=== PATIENT | female | born 1930 | race African-American/Black ===

== ENCOUNTER 2017-05-21 16:22 | Inpatient (IN) ==
[2017-05-21] MEDS ORDERED: NS 1,000 ML IV ONE ×2 (17:50→21:34)
[2017-05-21 18:00] LABS: MANUAL DIFF NEEDED? NO
[2017-05-21 18:03] LABS: BASO% 0.4 % (0.0-0.8); EOS% 2.1 % (0.0-10.0); HEMATOCRIT 37.6 % (37.0-47.0); HEMOGLOBIN 11.8 g/dL (12.0-16.0); LYMPH# 3.01 X1000 (1.2-3.4); LYMPH% 30.9 % (20.5-51.1); MCH 27.3 PG (27-31); MCHC 31.4 g/dL (33-37); MONO# 1.23 X1000 (0.11-0.59); MONO% 12.6 % (1.7-9.3); MPV 11.9 FL (7.4-10.4); PLT 222 X1000 (130-400); RBC 4.32 XMIL (4.2-5.4)
[2017-05-21 18:22] LABS: ALBUMIN 3.6 g/dL (3.5-5.0); CALCIUM 10.1 mg/dL (8.8-10.2); POTASSIUM 3.7 mmol/L (3.5-5.1); TOTAL BILIRUBIN 0.2 mg/dL (0.20-1.00)
--- NOTE | 2017-05-21 18:46 | Diag Imaging Result Doc PS360 ---
EXAM: CHEST-1 VIEW INDICATION: r/o pneumonia TECHNIQUE: One view COMPARISON: 05/18/2017 FINDINGS: There is mild chronic appearing interstitial thickening bilaterally, stable. There is suggestion of mild atelectasis and/or infiltrate at the left lung base. The lungs are grossly clear, otherwise. There is no discrete pleural fluid collection or pneumothorax. There are stable CABG changes. Cardiac silhouette and central vasculature are essentially unremarkable, otherwise. IMPRESSION: Chronic appearing interstitial fibrotic change and minimal atelectasis versus infiltrate at the left lung base. Electronically signed by Lisandro Lisa 05/21/2017 6:44 PM
--- NOTE | 2017-05-21 19:08 | EKG Report ---
Test Performed on : 05/21/2017 6:51:50 PM Test Reason : chest pain Blood Pressure : / mmHG Vent. Rate : 057 BPM Atrial Rate : 057 BPM P-R Int : 200 ms QRS Dur : 104 ms QT Int : 436 ms P-R-T Axes : 026 000 030 degrees QTc Int : 424 ms Sinus bradycardia. Septal infarct (cited on or before 14-MAY-2017) Abnormal ECG When compared with ECG of 14-MAY-2017 15:53, Questionable change in initial forces of Septal leads Unconfirmed Result
[2017-05-21 20:23] LABS: URINE SOURCE CLEAN CATCH
[2017-05-21 20:26] LABS: BILIRUBIN URINE 1+ (NEGATIVE); BLOOD URINE NEGATIVE (NEGATIVE); CLARITY CLEAR (CLEAR); COLOR YELLOW; GLUCOSE URINE NEGATIVE (NEGATIVE); LEUKOCYTES URINE NEGATIVE (NEGATIVE); NITRITE URINE NEGATIVE (NEGATIVE); PROTEIN URINE TRACE mg/dL (NEGATIVE); URINE MICROSCOPIC NEEDED? YES; UROBILINOGEN URINE NORMAL
[2017-05-21 20:33] LABS: URINE EPITHELIAL CELLS <10 /HPF (<10); URINE RBC <10 /HPF (<10); URINE WBC <10 /HPF (<10)
[2017-05-21] MEDS ORDERED: PLAVIX PO ONE (22:56)
[2017-05-21] MEDS ORDERED: PRAVACHOL PO ONE (22:56)
--- NOTE | 2017-05-21 23:20 | PROVIDER DOCUMENTATION ---
This chart was entered by Iris Stokes Scribe, acting as scribe for Vlad Escalante DO. HPI-General Adult - General Chief Complaint: Headache Stated Complaint: "DEHYDRATED" Time Seen by Provider: 05/21/17 17:07 Source: patient, family Allergies/Adverse Reactions: Patient Allergies Allergy/AdvReac Type Severity Reaction Status Date / Time No Known Allergies Allergy Verified 05/14/17 14:42 Home Medications: Home Medication List Medication Instructions Recorded Confirmed Last Taken Type Alendronate Sodium 70 mg PO DIRECTED 06/27/15 05/14/17 03/21/16 History Allopurinol 300 mg PO DAILY 06/27/15 05/14/17 03/24/16 History Amlodipine Besylate 10 mg PO DAILY 06/27/15 05/14/17 03/24/16 History Clopidogrel [Plavix] 75 mg PO DAILY 06/27/15 05/14/17 03/24/16 History Levothyroxine [Synthroid] 88 microgm PO DAILY 06/27/15 05/14/17 03/24/16 History Losartan/Hydrochlorothiazide 1 each PO DAILY 06/27/15 05/14/17 03/24/16 History [Losartan-Hctz 50-12.5 mg Tab] Metoprolol Succinate E.r. [Toprol 50 mg PO DAILY 06/27/15 05/14/17 03/24/16 History Xl] Pantoprazole Sodium 40 mg PO DAILY 06/27/15 05/14/17 03/24/16 History Potassium Chloride 10 meq PO DAILY 06/27/15 05/14/17 03/24/16 History Pregabalin [Lyrica] 150 mg PO TID 06/27/15 05/14/17 03/24/16 History Trazodone [Desyrel] 100 mg PO QHS 06/27/15 05/14/17 03/24/16 History Calcium Carbonate/Vitamin D3 1 tab PO DAILY 03/25/16 05/14/17 03/24/16 History [Calcium 600 + Vit D 400 Tablet] Hydrocodone/Acetaminophen [Dunn 1 tab PO TID PRN PRN #0 03/28/16 05/14/1712/04 Rx 10-325 Tablet] PRAVAstatin [Pravachol] 20 mg PO QHS 05/14/17 05/14/17 Unknown History Ondansetron [Zofran] 4 mg IV Q6H PRN PRN #20 vial 05/18/17 Unknown Rx - History of Present Illness -Gen Adult Nature of Presenting Problems: pt presents complaining of "heavy head" feeling discharged 4 days ago from this facility, pt unable to describe complaint further, family feels pt is dehydrated. Location of Pain/Injury: reports: none. denies: head (no injury or pain pt describes "heavy head" feeling) Pain Radiation: reports: no radiation. denies: chest, jaw, neck Quality of Pain: reports: fullness Severity: reports: mild Onset/Duration: reports: unsure Timing: reports: still present Context/Activities at Onset: reports: rest Modifying Factors: improves with: nothing Associated Symptoms: denies: chest pain, dizziness, nausea, vomiting Similar Symptoms Previously?: No Recently seen or treated by another doctor?: Yes (discharged from this facility 4 days prior) - Diabetes Related Context Context: reports: low blood sugar Review of Systems - Adult - REVIEW OF SYSTEMS - ADULT Constitutional: denies: chills, fever Eyes: denies: decreased vision, blurred vision, double vision Ears, Nose, Mouth & Throat: denies: ear pain, tinnitus, sinus problem Cardiovascular: denies: chest pain, palpitations, syncope Respiratory: denies: dyspnea on exertion, shortness of breath Gastrointestinal: denies: abdominal pain, nausea, vomiting Genitourinary: denies: dysuria, frequency, incontinence Musculoskeletal: denies: back pain, muscle aches, neck pain Integumentary: denies: itching, rash Neurological: denies: dizziness/vertigo, headache/migraines, loss of balance, slurred speech, syncope Psychiatric: reports: no symptoms reported Endocrine: reports: no symptoms reported Hematologic/Lymphatic: denies: lymphedema, prolonged bleeding, swollen lymph nodes Allergic/Immunologic: reports: no symptoms reported All Other Systems: Reviewed and Negative Past History - Adult - PAST MEDICAL HISTORY-ADULT Review of Records: reports: Old Records Reviewed, Nursing Assessment Review, Medications Reviewed, Social history reviewed & non-contributory. Major Childhood Illnesses: reports: denies history Cardiovascular: reports: CAD, HTN, heart valve problem, hyperlipidemia Respiratory: reports: denies history Gastrointestinal: reports: GERD Obstetrical/Gynecological: reports: denies history Genitourinary: reports: denies history Musculoskeletal: reports: chronic pain, osteoporosis Neurological: reports: denies history Endocrine/Immune: reports: thyroid disorder Other Conditions: reports: denies history - PRIOR SURGERIES/PROCEDURES Surgical/Procedure History: reports: CABG, hysterectomy, orthopedic (extremity) - IMMUNIZATION STATUS Childhood Immunizations: See Nurse Assessment Flu Vaccine: See Nurse Assessment - FAMILY HISTORY Family History: reviewed, not pertinent - SOCIAL HISTORY Living Situation: family Physical Exam-General - PHYSICAL EXAM-ADULT Initial Vital Signs Reviewed: Yes - CONSTITUTIONAL General Appearance: appears well, alert, no apparent distress - EYES Eyes: PERRL/EOMI - HEAD, EARS, NOSE, MOUTH & THROAT HENMT: normocephalic/atraumatic, normal ENT inspection. negative: moist mucous membranes - NECK Neck: non-tender, full range of motion, supple, normal inspection - RESPIRATORY Respiratory: chest non-tender, lungs clear, normal breath sounds, no pleuratic chest pain, no respiratory distress, no accessory muscle use - CARDIOVASCULAR Cardiovascular: normal peripheral pulses, regular rate, rhythm, no edema, no gallop, no JVD, no murmur - GASTROINTESTINAL (ABDOMEN) Abdominal Exam: normal bowel sounds, non tender, soft - LYMPHATIC Lymphatic: no adenopathy - MUSCULOSKELETAL Back Exam: normal inspection, no CVA tenderness, no vertebral tenderness, CVA tenderness Extremity: normal range of motion, non-tender, normal inspection - SKIN Integumentary: normal color, normal turgor, warm/dry - NEUROLOGIC Neurologic: grossly normal - PSYCHIATRIC Psych/Mental Status: normal mood/affect Progress - PLAN OF CARE/RESULTS Progress/Plan/Lab Results: Vital Signs - 8 hr 05/21/17 16:29 Temperature 100.4 F H Pulse Rate 57 L Respiratory Rate 18 Blood Pressure 92/43 O2 Sat by Pulse Oximetry 88 L Laboratory Results - last 24 hr 05/21/17 05/21/17 05/21/17 16:45 16:45 16:45 WBC 9.73 RBC 4.32 Hgb 11.8 L Hct 37.6 MCV 87.0 MCH 27.3 MCHC 31.4 L RDW Std Deviation 16.1 H Plt Count 222 MPV 11.9 H Immature Gran % (Auto) 1.0 H Neut % (Auto) 53.0 Lymph % (Auto) 30.9 [place] % (Auto) 12.6 H Eos % (Auto) 2.1 Baso % (Auto) 0.4 Immature Gran # (Auto) 0.10 H Neut # (Auto) 5.15 Lymph # (Auto) 3.01 [place] # (Auto) 1.23 H Eos # (Auto) 0.20 Baso # (Auto) 0.04 Sodium 136 Potassium 3.7 Chloride 97 L Carbon Dioxide 25 Anion Gap 14 BUN 28 H Creatinine 2.7 H Estimated GFR/1.73 m2 17 BUN/Creatinine Ratio 10 Glucose 100 Calculated Osmolality 278 Calcium 10.1 Total Bilirubin 0.20 AST 22 ALT 20 Alkaline Phosphatase 140 H Troponin T Owd-M-Wgomlxdemca Pept 327 Total Protein 8.0 Albumin 3.6 Globulin 4.0 Albumin/Globulin Ratio 1.0 05/21/17 16:45 WBC RBC Hgb Hct MCV MCH MCHC RDW Std Deviation Plt Count MPV Immature Gran % (Auto) Neut % (Auto) Lymph % (Auto) [place] % (Auto) Eos % (Auto) Baso % (Auto) Immature Gran # (Auto) Neut # (Auto) Lymph # (Auto) [place] # (Auto) Eos # (Auto) Baso # (Auto) Sodium Potassium Chloride Carbon Dioxide Anion Gap BUN Creatinine Estimated GFR/1.73 m2 BUN/Creatinine Ratio Glucose Calculated Osmolality Calcium Total Bilirubin AST ALT Alkaline Phosphatase Troponin T 0.028 Ybr-X-Ptfoqkmqnwr Pept Total Protein Albumin Globulin Albumin/Globulin Ratio Orders Category Date Time Status cxr [CHEST-1 VIEW] [RAD] Stat Exams 05/21/17 17:49 Completed CBC WITH DIFF [HEME] Stat Lab 05/21/17 16:45 Completed COMPREHENSIVE METABOLIC PANEL [CHEM] Stat Lab 05/21/17 16:45 Completed TROPONIN T Stat Lab 05/21/17 16:[address] [URINALYSIS] Stat Lab 05/21/17 17:48 Ordered pro-bnp [PRO B-NATRIURETIC PEPTIDE] Stat Lab 05/21/17 16:45 Completed 0.9% Sodium Chloride Inj [Ns] 1,000 ml Med 05/21/17 17:50 Discontinued IV 999 mls/hr EKG [EKG] Stat Ther 05/21/17 17:44 Ordered SPOKE WITH AND HE HAS ACCEPTED THE ADMISSION Result Diagrams: 05/21/17 16:45 05/21/17 16:45 - EKG 1 Time of EKG reading by physician:: 18:51 EKG Read and Signed by:: Parvez Saunders EKG Interpretation (*Must complete 3 of following elements*): Abnormal Rate: 57 Rhythm: sinus bradycardia [place]: normal QRS: normal NC Interval: normal ST Wave: normal Comments: sinus bradycardia, spetal infarct-age undetermined Departure - Departure Date of Disposition Decision: 05/21/17 Time of Disposition Decision: 23:19 DIAGNOSIS: Acute kidney injury Disposition: ADMITTED INPATIENT 09 Certified Medical Emergency: Emergent Condition: Critical Referrals and Follow-Ups: Casandra Montero MD [Primary Care Provider] - - Critical Care Note This patient required my direct & personal management of CC.: No Attestation - Physician/ ROBERTO CARLOS Attestation Patient care was provided by Advanced Practice Provider:: No The physician spent face to face time with patient:: Yes Advanced Practice Provider documentation review:: Supervising physician onsite and consulted in the evaluation and care of this patient. The physician did have a face to face encounter with the patient. This chart was documented by the indicated scribe, (Iris Stokes Scribe) and accurately reflects the services I performed and decisions made by me, Vlad Escalante DO, as attested by the provider's signature.
[2017-05-21] MEDS ORDERED: LEVAQUIN 750 MG/D5W 750 MG/150 ML IVPB IV ONE (23:26)
[2017-05-22] MEDS ORDERED: PNEUMOVAX 23 IM ONE (01:03)
[2017-05-22] MEDS ORDERED: ZOFRAN IV PRN (06:44)
[2017-05-22] MEDS ORDERED: TYLENOL PO PRN (06:44)
[2017-05-22] MEDS ORDERED: NORCO-10 PO PRN (06:45)
[2017-05-22 07:07] LABS: BASO% 0.3 % (0.0-0.8); EOS# 0.16 X1000 (0.0-0.7); EOS% 1.5 % (0.0-10.0); HEMOGLOBIN 10.1 g/dL (12.0-16.0); IMM GRAN# 0.09 X1000 (0.0-0.04); IMM GRAN% 0.9 % (0.0-0.5); LYMPH# 2.52 X1000 (1.2-3.4); LYMPH% 24.1 % (20.5-51.1); MCH 27.3 PG (27-31); MCHC 31.6 g/dL (33-37); MCV 86.5 FL (81-99); MONO# 1.14 X1000 (0.11-0.59); MONO% 10.9 % (1.7-9.3); MPV 11.3 FL (7.4-10.4); NEUT% 62.3 % (42.2-75.2); PLT 210 X1000 (130-400)
[2017-05-22 07:38] LABS: ALBUMIN 3.2 g/dL (3.5-5.0); CALCIUM 9.1 mg/dL (8.8-10.2); MAGNESIUM 1.9 mg/dL (1.5-2.7); POTASSIUM 3.9 mmol/L (3.5-5.1); TOTAL BILIRUBIN 0.2 mg/dL (0.20-1.00); TOTAL PROTEIN 6.2 g/dL (6.3-8.3)
[2017-05-22] MEDS: NS 1,000 ML IV SCH ×2 (08:18→23:12)
[2017-05-22] MEDS: NORVASC PO SCH (08:20)
[2017-05-22] MEDS: LYRICA PO SCH ×3 (08:21→17:29)
[2017-05-22] MEDS: ZYLOPRIM PO SCH (08:21)
[2017-05-22] MEDS: PROTONIX PO SCH (08:21)
[2017-05-22] MEDS: CALTRATE 600 + D PO SCH (08:21)
[2017-05-22] MEDS: SYNTHROID PO SCH (08:21)
[2017-05-22] MEDS: TOPROL XL PO SCH (08:21)
[2017-05-22] MEDS: PLAVIX PO SCH (08:21)
[2017-05-22 08:27] LABS: MANUAL DIFF NEEDED? YES
[2017-05-22 08:28] LABS: LYMPHS 32 % (21-51); MONO 4 % (1-9)
[2017-05-22] MEDS: ROCEPHIN 1 GM in NS 50 ML IV SCH (15:02)
[2017-05-22] MEDS: DOXYCYCLINE 100 MG in NS 250 ML IV SCH (16:28)
--- NOTE | 2017-05-22 16:55 | HISTORY AND PHYSICAL ---
CHIEF COMPLAINT: "My head feels heavy and I'm dehydrated." HISTORY OF PRESENT ILLNESS: This is an 87-year-old female, with a history of hypertension and hypothyroid, who presented to the emergency room complaining of a headache, describing this as a heavy feeling. Family members state that she is dehydrated. Evidently, the patient was discharged 4 days ago from [facility]. At that time, she was evaluated for fever of unknown etiology with nausea, decreased appetite and hypokalemia. After IV hydration and Rocephin, her white blood cell count did decrease. She was asymptomatic, and felt like being discharged. Shortly after being home, she began to feel weak. She was anorexic and had taken very little p.o. solids or liquid intake since discharge. She did have a temperature of a 100.4 degrees in the emergency room. She was noted to have a creatinine of 2.7, with a creatinine of 0.8 just 4 days prior. She was given IV hydration and admitted for further evaluation and treatment. PAST MEDICAL HISTORY: Coronary artery disease, hypertension, hypothyroid, osteoporosis, osteoarthritis, and gastroesophageal reflux disease. PAST SURGICAL HISTORY: Lumbar spine surgery, rotator cuff surgery, and aortic valve replacement in [place] [address] Santos. ALLERGIES: No known drug allergies. SOCIAL HISTORY: She denies any alcohol, tobacco, or illicit drug use. HOME MEDICATIONS: A list will be obtained. REVIEW OF SYSTEMS: A 14-point review of systems is discussed with the patient, with pertinent positives being headache, anorexia and feeling weak. She denied chest pain, dizziness, syncope, palpitations, any vomiting, diarrhea, constipation, black or bloody vomitus, black or bloody stools, any hematuria, dysuria, frequency, urgency. PHYSICAL EXAMINATION: GENERAL: This is an 87-year-old female who is lying in the bed, in no distress. VITAL SIGNS: Blood pressure is 110/57, with a heart rate of 60, respirations are 16, temperature is 98.9 degrees oral, with room air saturations of 91% to 93%. HEENT: Head is normocephalic, atraumatic. Pupils equal, round, react to light. EOMs are intact. Sclerae anicteric. Mucous membranes are dry. NECK: Supple, with trachea midline. CARDIOVASCULAR: Regular rate and rhythm. S1 and S2 appreciated. She does have a 3/6 systolic murmur. PULMONARY: Breath sounds are clear, with no increased work of breathing noted. Chest does rise and fall symmetrically with respiration. GASTROINTESTINAL: Abdomen is soft, nondistended and nontender, with bowel sounds in all 4 quadrants. BACK: No CVAT. No spine tenderness. MUSCULOSKELETAL: Good range of motion of joints. NEUROLOGIC: She is alert and oriented x3. EXTREMITIES: No clubbing, cyanosis, or edema. Calves are nontender. Pulses are palpable x4. DIAGNOSTICS: WBC is 9.7, with a hemoglobin of 11.8, hematocrit 37.6 and platelets of 222,000. Sodium is 136, potassium 3.7, BUN 28, creatinine 2.7, with a glucose of 100. Urinalysis is essentially negative. And chest x-ray revealed chronic interstitial fibrotic change and minimal atelectasis versus infiltrate at the left lung base. ASSESSMENT AND PLAN: 1. Acute kidney injury. 2. Left lower lobe atelectasis versus infiltrate. 3. Hypertension. 4. Hypothyroid. 5. Nausea. 6. Anorexia. PLAN: She will be admitted to the hospital. She will be placed on telemetry. We will give supplemental oxygen. We will give gentle hydration, identify her home medications and continue as appropriate. If blood cultures were not drawn in the emergency room, we will draw blood cultures. We will start antibiotic coverage of Rocephin and doxycycline. We will hold any renal toxic medications. We will dose as appropriate. We will trend her electrolytes. Further treatments pending hospital course. Dictated by LAZARUS Burgos for Homer Swenson MD cc: LAZARUS Burgos MD
--- NOTE | 2017-05-22 20:29 | PROGRESS NOTE ---
DATE: 05/22/2017 Patient seen and examined by myself. Full note dictated by nurse practitioner. SUBJECTIVE: The patient states that she is feeling a little bit better. Notes that she has not been drinking much at all over the weekend. In fact, states that she has had very little to drink. Denies any chest pain, palpitations. Denies any real diarrhea or constipation. OBJECTIVE: Patient is awake and alert. She is in no respiratory distress. Pleasant to talk with. Vital signs are stable. Chest is clear. CV: Regular rate. ASSESSMENT: Patient is noted to have an acute kidney injury. Her creatinine is higher than her typical baseline. Therefore, we will put her in the hospital, place her on IV fluids and follow. cc: Homer Swenson MD
[2017-05-22] MEDS: DESYREL PO SCH (20:40)
[2017-05-22] MEDS: PRAVACHOL PO SCH (20:40)
[2017-05-23] MEDS: DOXYCYCLINE 100 MG in NS 250 ML IV SCH ×2 (04:45→16:30)
[2017-05-23 06:40] LABS: HEMATOCRIT 31.4 % (37.0-47.0); HEMOGLOBIN 9.5 g/dL (12.0-16.0); MCH 26.2 PG (27-31); MCHC 30.3 g/dL (33-37); MCV 86.7 FL (81-99); MPV 11.2 FL (7.4-10.4); RBC 3.62 XMIL (4.2-5.4)
[2017-05-23 06:48] LABS: AGAP 10; ALKALINE PHOSPHATASE 104 U/L (32-104); BUN 10 mg/dL (8-22); CALCIUM 9.1 mg/dL (8.8-10.2); CHLORIDE 106 mmol/L (98-107); COSMO 280; GOT 10 U/L (10-30); GPT 9 U/L (10-36); MAGNESIUM 1.7 mg/dL (1.5-2.7); POTASSIUM 3.9 mmol/L (3.5-5.1); SODIUM 141 mmol/L (136-145); TCO2 25 mmol/L (25-35)
[2017-05-23] MEDS: SYNTHROID PO SCH (07:40)
[2017-05-23] MEDS: PLAVIX PO SCH (09:07)
[2017-05-23] MEDS: ZYLOPRIM PO SCH (09:07)
[2017-05-23] MEDS: PROTONIX PO SCH (09:07)
[2017-05-23] MEDS: NORVASC PO SCH (09:07)
[2017-05-23] MEDS: TOPROL XL PO SCH (09:07)
[2017-05-23] MEDS: LYRICA PO SCH ×3 (09:08→16:29)
[2017-05-23] MEDS: CALTRATE 600 + D PO SCH (09:08)
[2017-05-23] MEDS: ROCEPHIN 1 GM in NS 50 ML IV SCH (13:24)
[2017-05-23] MEDS: NS 1,000 ML IV SCH (13:24)
--- NOTE | 2017-05-23 15:20 | PROGRESS NOTE ---
DATE: 05/23/2017 SUBJECTIVE: The patient has no focal complaints. She is laying in bed. OBJECTIVE: Vital signs: 103/45, heart rate 67, respiratory 16, temperature 98.9 degrees, 95% on room air. Cardiovascular: Regular rate and rhythm. Pulmonary: Bilateral breath sounds. Diminished at bases. GI: Soft, nontender, nondistended. Bowel sounds are positive. LABORATORY DATA: CBC looked okay. Hemoglobin and hematocrit 9, 31, CMP looked okay. PROBLEM LIST: 1. Acute kidney injury that seems to be improving. Will continue fluids and follow closely. 2. Left lower lobe pneumonia. She is on Rocephin and doxycycline day 2. She seems to be doing better. 3. Hypothyroidism appears to be overall improved. 4. Anemia which is normocytic. We will continue to follow. Check iron stores and follow closely. DISPOSITION: Pending clinical improvement. She likely will need I think rehab at discharge. cc: Anthony Spears MD
[2017-05-23] MEDS: DESYREL PO SCH (19:59)
[2017-05-23] MEDS: PRAVACHOL PO SCH (20:00)
[2017-05-24] MEDS: DOXYCYCLINE 100 MG in NS 250 ML IV SCH (03:20)
[2017-05-24 06:20] LABS: HEMATOCRIT 31.2 % (37.0-47.0); HEMOGLOBIN 9.4 g/dL (12.0-16.0); MCH 26.3 PG (27-31); MCHC 30.1 g/dL (33-37); MCV 87.2 FL (81-99); MPV 11.4 FL (7.4-10.4); RBC 3.58 XMIL (4.2-5.4)
[2017-05-24 07:02] LABS: AGAP 9; BUN 6 mg/dL (8-22); CHLORIDE 106 mmol/L (98-107); COSMO 277; POTASSIUM 3.8 mmol/L (3.5-5.1); SODIUM 140 mmol/L (136-145); TCO2 25 mmol/L (25-35)
--- NOTE | 2017-05-24 07:27 | Diag Imaging Result Doc PS360 ---
EXAM: CHEST-2 VIEWS HISTORY: hypoxia TECHNIQUE: Two views COMPARISON: 05/21/2017 FINDINGS: The lungs are well expanded. The heart is enlarged. Sternal wires are present and a heart valve has been replaced. The vessels are not distended. Mild increased markings in left base believed to be atelectasis or fibrosis. No consolidation. No pleural effusions. The appearance of the chest is similar to that of the prior exam. IMPRESSION: Stable chest Electronically signed by Christiano Smith 05/24/2017 7:25 AM
[2017-05-24] MEDS ORDERED: SYNTHROID PO SCH (07:46)
[2017-05-24] MEDS ORDERED: DOXYCYCLINE PO SCH (09:00)
[2017-05-24] MEDS: LYRICA PO SCH ×2 (09:41→13:18)
[2017-05-24] MEDS: CALTRATE 600 + D PO SCH (09:41)
[2017-05-24] MEDS: PLAVIX PO SCH (09:42)
[2017-05-24] MEDS: ZYLOPRIM PO SCH (09:42)
[2017-05-24] MEDS: NORVASC PO SCH (09:42)
[2017-05-24] MEDS: TOPROL XL PO SCH (09:42)
[2017-05-24] MEDS: PROTONIX PO SCH (09:42)
[2017-05-24] MEDS: ROCEPHIN 1 GM in NS 50 ML IV SCH (13:18)
[2017-05-24 14:00] VITALS: BP 146/58
--- NOTE | 2017-05-24 15:48 | DISCHARGE SUMMARY ---
ADMISSION DATE: 05/21/2017 DISCHARGE DATE: 05/24/2017 DIAGNOSES: 1. Acute kidney injury, resolved. 2. Left lower lobe pneumonia. We will continue doxycycline and add Omnicef on discharge. She is improving. 3. Hypothyroidism, with a TSH of 1.78. 4. Normocytic anemia. 5. Nausea and anorexia. Resolved. DIAGNOSTICS: 05/21/2017 chest x-ray revealed chronic appearing interstitial fibrotic change and minimal atelectasis versus infiltrate at the left lung base. 05/24/2017 chest x-ray revealed a stable chest with increased markings in the left base believed to be atelectasis or fibrosis. MICROBIOLOGY: Blood cultures revealed no growth after 48 hours x2. HOSPITAL COURSE: Ms. Booth presented to the emergency room complaining of her head feeling heavy and being dehydrated. She stated that she had been discharged from [place] 4 days prior to admission and started having anorexia within about 24 hours. From that time until admission to the hospital she states she had no solids and very little liquid intake. She did have a temperature of a 100.4 degrees, and had a creatinine of 2.7 on admission. She was given IV hydration. Creatinine did decrease back down to. 0.7 after hydration. After being hydrated her nausea did resolve, her appetite did begin to return, and she has tolerated regular diet, eating about 25%-50% of her diet with no nausea or vomiting. She did receive IV Rocephin and doxycycline in the hospital and she will be discharged on oral doxycycline as well as Omnicef. She will be discharged to rehab in stable condition. DISCHARGE PHYSICAL EXAMINATION: Cardiovascular: Regular rate and rhythm. S1 and S2 appreciated. Pulmonary: Breath sounds are clear with no increased work of breathing noted. Gastrointestinal: Abdomen is soft, nontender, nondistended with bowel sounds in all 4 quadrants. Extremities: No clubbing, cyanosis, or edema. Calves nontender and pulses palpable x4. Neurologic: She is alert and oriented x3. Discharge Vital Signs: Blood pressure 146/58, with a heart rate of 56, respirations 18, temperature 99 degrees, with O2 saturations of 93%-95%. DISCHARGE MEDICATIONS: 1. Synthroid 88 mcg daily. 2. Toprol XL 50 mg daily. 3. Plavix 75 mg p.o. daily. 4. Amlodipine 10 mg p.o. daily. 5. Allopurinol 300 p.o. daily. 6. Fosamax as directed. 7. Trazodone 100 mg p.o. at bedtime. 8. Pantoprazole 40 mg daily. 9. Pravachol 20 at bedtime. 10. Lyrica 150 three times daily. 11. [place] 10, one 3 times daily p.r.n. 12. Doxycycline 100 mg p.o. b.i.d. for 10 days. 13. Omnicef 300 mg b.i.d. for 10 days. She is being discharged to rehab in stable condition with family members present. This is a greater than 30 minute discharge. Dictated by LAZARUS Burgos for Homer Swenson MD cc: LAZARUS Burgos MD Alexis R. Penot, MD
--- NOTE | 2017-05-24 20:44 | PROGRESS NOTE ---
DATE: 05/24/2017 SUBJECTIVE: Patient seen, states that she is starting to feel a little bit better. She is starting to drink better. Really has not been out of bed. Still tired and fatigued. Still weak at times. OBJECTIVE: Vital Signs: Reviewed. Temperature 98.1 degrees, pulse 58, respiratory rate 18, blood pressure 113/54. General: Patient is a well developed, well nourished female who is currently in no respiratory distress. She is awake, alert, lying in bed. HEENT: Normocephalic, [place]IA IN[place]. Neck: Supple. CARDIOVASCULAR: Regular rate. Chest: Clear. Abdomen: Soft. Extremities: Moves all extremities, although generalized weakness. Neurologic: No focal changes. ASSESSMENT: 1. Acute renal failure, resolved. Serum creatinine was 2.7 on admit, currently down to 0.8. 2. Acute volume depletion, resolved. BUN was 28, currently down to 10. 3. Nausea, vomiting, resolved. 4. Hypertension, patient's blood pressure actually is stable. She has not restarted her losartan/hydrochlorothiazide. We will continue to leave this off. PLAN: We will continue to follow. We will stop her IV fluids. Discontinue her [place]. Get physical therapy involved and hopefully home soon versus rehab. cc: MD Anthony Briseno MD
[2017-05-29] MEDS ORDERED: FOSAMAX PO SCH (07:00)
== END 2017-05-24 16:35 ==
LOC: P.ED 16:22 → SUATTDRO 23:28 → P.MEDSURG 23:28
PROVIDERS: ADMIT Internal Medicine; ATTEND Internal Medicine